=== PATIENT | female | born 1995 | race Two or more races ===

== ENCOUNTER 2022-07-03 13:05 | Observation (INO) | payer MEDICAID | END 2022-07-03 15:55 | disposition home or self-care (01) | LOC: LDRP 13:05 → UNDOADMOB 13:05 → LDRP 14:18 | PROVIDERS: ADMIT Obstetrics & Gynecology; ATTEND Obstetrics & Gynecology | DX: O36.8120 Decreased fetal movements, second trimester, not applicable or unspecified (principal); Z3A.23 23 weeks gestation of pregnancy | CPT/HCPCS: 59025; 76805; 81002; 94760; G0378 ==